=== PATIENT | female | born 1990 | race Caucasian/White ===

== ENCOUNTER 2021-06-03 08:29 | Inpatient (IN) ==
[2021-06-03] MEDS ORDERED: Famotidine 20 MG/2 ML VIAL IVP PRN (08:53)
[2021-06-03] MEDS ORDERED: Naloxone 0.4 MG/ML INJ IVP PRN ×2 (08:53→11:16)
[2021-06-03] MEDS ORDERED: Ondansetron 4 MG/2 ML VIAL IVP PRN ×2 (08:53→11:16)
[2021-06-03] MEDS ORDERED: miSOPROStoL 25 MCG TABLET PO PRN (08:53)
[2021-06-03] MEDS ORDERED: *HR* Nalbuphine 10 MG/ML AMPUL IV PRN (08:53)
[2021-06-03] MEDS ORDERED: Metoclopramide 10 MG/2 ML VIAL IVP PRN (08:53)
[2021-06-03] MEDS ORDERED: Azithromycin 500 MG in 0.9 % Sodium Chloride 250 ML IVPB PRN (08:53)
[2021-06-03] MEDS ORDERED: Lidocaine 1% 20 ML MDV INFILT PRN (08:53)
[2021-06-03] MEDS ORDERED: Oxytocin 20 units/ LR 1000 mL 20 UNIT/1,000 ML BAG IVC SCH ×2 (09:00→19:41)
[2021-06-03] MEDS ORDERED: Ringers Solution, Lactated 1,000 ML IVC SCH (09:00)
[2021-06-03 10:20] LABS: Basophils % 0.3 %; Eosinophils % 0.5 %; Hematocrit 33.6 % (35.3-44.9); Hemoglobin 12.2 g/dL (11.5-15.4); Immature Granulocytes % 0.5 % (0-4); Lymphocytes # 1.1 K/mcL (0.6-4.6); Lymphocytes % 13.9 %; Mean Corpuscular HGB Conc 36.3 g/dL (31.6-35.5); Mean Corpuscular Volume 93.6 fL (83.0-100.0); Mean Platelet Volume 9.9 fL (9.4-12.4); Monocytes # 0.6 K/mcL (0.0-1.3); Monocytes % 7.9 %; Neutrophils # 5.9 K/mcL (1.6-8.9); Platelet Count 192 K/mcL (140-400); Red Blood Count 3.59 M/mcL (3.82-4.97); Red Cell Distribution Width 12.9 % (11.5-14.5); Segmented Neutrophils % 76.9 %; White Blood Count 7.6 K/mcL (4.3-11.1)
[2021-06-03] MEDS ORDERED: EPHEDrine 50 MG/ML VIAL IVP PRN (11:16)
[2021-06-03] MEDS ORDERED: Ropivacaine/PF 0.2% 20 ML VIAL EP ONE (11:16)
[2021-06-03 11:24] LABS: Amphetamine Screen,Urine Negative ng/mL (Cutoff=1000); Barbiturate Screen,Urine Negative ng/mL (Cutoff=200); Benzodiazepines Screen,Urine Negative ng/mL (Cutoff=200); Cannabinoid Screen,Urine Negative ng/mL (Cutoff = 50); Cocaine Screen,Urine Negative ng/mL (Cutoff= 300); Opiate Screen,Urine Negative ng/mL (Cutoff=300); Phencyclidine Screen,Urine Negative ng/mL (Cutoff=25)
[2021-06-03] MEDS ORDERED: Epidural Premix (fent/bupiv) 110 ML EP SCH (11:30)
[2021-06-03] MEDS ORDERED: EPHEDrine 50 MG/ML VIAL ONE (14:55)
[2021-06-03] MEDS ORDERED: Lanolin 7 G OINT...G. TP PRN (19:41)
[2021-06-03] MEDS ORDERED: Rho Immune Globulin 1,500 UNIT SYRINGE IM PRN (19:41)
[2021-06-03] MEDS ORDERED: Benzocaine/Menthol 56 GM AEROSOL SPRAY TP PRN (19:41)
[2021-06-03] MEDS ORDERED: Acetaminophen 325 MG TABLET PO PRN (19:41)
[2021-06-03] MEDS: Ibuprofen 600 MG TABLET PO PRN (21:40)
[2021-06-03 22:50] VITALS: O2SAT 96
[2021-06-04] MEDS: Ibuprofen 600 MG TABLET PO PRN (08:10)
[2021-06-04] MEDS ORDERED: Prenatal Vit/FA 1 EACH TABLET PO SCH (09:00)
[2021-06-04 15:53] VITALS: BP 106/70; PULSE 68; TEMP 98
== END 2021-06-04 17:57 | disposition home or self-care (01) | DRG 807 ==
LOC: 1NENULAB 08:29 → 1NENUOBS 21:15
PROVIDERS: ADMIT Advanced Practice Midwife; ATTEND Advanced Practice Midwife